=== PATIENT | female | born 1955 | race Caucasian/White ===

== ENCOUNTER 2019-11-15 15:16 | Inpatient (IN) | payer MEDICARE, MEDICAID ==
[~2019-11-15] VITALS: Ht 167.6 cm; Wt 98.6 kg
[2019-11-15] VITALS (469 sets, daily range): BP systolic 85–174; BP diastolic 45–87; PULSE 68–91; TEMP 98.2–98.6; O2SAT 32–100
[~2019-11-15 15:16] MED LIST: CAPSAICIN0.025% TP; IPRATROPIUM BROM3 M1 IH; KLONOPIN WAFER0.5 MG PO; LAMICTAL150 MG PO; NEURONTIN300 MG/CAP PO; NORVASC 5MG5 MG/TAB PO; PERCOCET 325 MG1 TA2 PO; ROZEREM 8MG TABL8 MG PO; WELLBUTRIN SR200 MG PO
--- NOTE | 2019-11-15 16:00 | NUR ---
Patient arrives to ICU 6 intubated and sedated. VS WNL. Assessment completed. Dr. Brady and Dr. Mahmood on unit to see her.
--- NOTE | 2019-11-15 17:15 | NUR ---
1630: Dr Brady gives order to prepare for ET tube exchange. 1640: 2mg Versed given, Dr Brady at bedside 1646: SPO2 dropped to 30% during exchange, crash cart at bedside anesthesia paged. BVM intitiated at 15L 1653: AA at bedside (Mynor Muller) to assist with re intubation 1659: 2mg versed given 1700: intubation complete, ET tube 8.0, 24 at the teeth. + color change with co2 indicator 1703: bronch at bedside, started. ET tube repostioned to 22cm at teeth 1709: bronch complete 1715: NG tube removed and OG placed at 55 at lip, placement confirmed. xray called to confirm ET tube placement.
[2019-11-15 18:06] LABS: ARTERIAL BLD GAS O2 SATURATION 88.3 % (92-100); ARTERIAL BLD GAS TCO2 CT 26.1; ARTERIAL BLOOD GAS HCO3 24.7 meq/L (22-26); ARTERIAL BLOOD GAS PCO2 45.7 mmHg (35-45); ARTERIAL BLOOD GAS PO2 58.8 mmHg (80-100); ARTERIAL BLOOD GAS pH 7.35 (7.35-7.45)
[2019-11-15 18:06] LABS: ARTERIAL BLD GAS O2 SATURATION 94.4 % (92-100); ARTERIAL BLOOD GAS BASE EXCESS 0.6 (-2-2); ARTERIAL BLOOD GAS HCO3 25.7 meq/L (22-26); ARTERIAL BLOOD GAS PCO2 43.4 mmHg (35-45); ARTERIAL BLOOD GAS PO2 66.4 mmHg (80-100); ARTERIAL BLOOD GAS pH 7.39 (7.35-7.45)
[2019-11-15 18:27] LABS: MEAN CELL VOLUME 90 fl (80.0-100.0); MEAN CORPUSCULAR HGB CONC 30 g/dl (33.0-37.0); MEAN PLATELET VOLUME 9.3 fl (7.4-10.4); PLATELET COUNT 355 K/mm3 (130-400); RED BLOOD COUNT 3.02 M/mm3 (4.10-5.30); REDCELL DISTRIBUTION WIDTH-CV 17.1 % (11.5-14.5)
[2019-11-15] MEDS ORDERED: DITROPAN XL15 MG PO (18:27)
[2019-11-15 18:30] LABS: PARTIAL THROMBOPLASTIN TIME 36.7 SECONDS (26.0-37.0)
[2019-11-15 18:31] LABS: HEMATOCRIT 27.1 % (37.0-47.0); HEMOGLOBIN 8.2 g/dl (12.5-16.0); MEAN CORPUSCULAR HEMOGLOBIN 27 pg (27.0-31.0)
[2019-11-15] MEDS ORDERED: PROTONIX 40MG T40 MG PO (18:32)
[2019-11-15 18:33] LABS: BILIRUBIN,TOTAL 0.5 mg/dL (0.0-1.0); CALCIUM 7.5 mg/dL (8.4-10.2); CREATININE, serum 4.44 (0.52-1.25); POTASSIUM 5.3 mmol/L (3.4-5.0); TOTAL PROTEIN 6.1 gm/dL (6.4-8.2)
[2019-11-15] MEDS ORDERED: VOLTAREN GEL 1%1 TU TP (18:33)
[2019-11-15] MEDS ORDERED: DULCOLAX STOOL100 MG PO (18:34)
[2019-11-15] MEDS ORDERED: MIRALAX PA17 GM/Dose PO (18:36)
[2019-11-15] MEDS ORDERED: DULCOLAX S10 MG/SUPP RC (18:37)
[2019-11-15] MEDS ORDERED: TYLENOL 325MG325 MG PO (18:38)
[2019-11-15 18:57] LABS: BAND 2 % (0-10); LYMPHOCYTE 2 % (20.0-51.0); MYELOCYTE 2 % (0-0); NEUTROPHILS 91 % (42.0-75.2); PLATELET ESTIMATE NORMAL (NORMAL)
[2019-11-15 18:58] LABS: ANISOCYTOSIS 2+; HYPOCHROMIA 2+
--- NOTE | 2019-11-15 20:00 | NUR ---
Assessment complete; patient opened eyes on to speech and shook head "yes" when this nurse said her name. Would not follow basic commands to squeeze hands or wiggle toes. Observed patient moving legs on bed independently. VS stable. Will continue to monitor.
[2019-11-15] MEDS ORDERED: NEURONTIN600 MG/TAB PO (20:15)
[2019-11-15 22:59] LABS: PH 5 (5-8); SQUAMOUS EPITHELIAL 0-2 /hpf; URINE APPEARANCE Hazy; URINE BACTERIA Rare /hpf; URINE BILIRUBIN Negative (NEGATIVE); URINE BLOOD 2+ (NEGATIVE); URINE COLOR Yellow; URINE GLUCOSE Negative (NEGATIVE); URINE KETONE Negative (NEGATIVE); URINE LEUKOCYTE ESTERASE Negative (NEGATIVE); URINE NITRATE Negative (NEGATIVE); URINE PROTEIN(semi-quant) 1+ (NEGATIVE); URINE RBC 20-50 /hpf; URINE UROBILINOGEN Negative (NEGATIVE)
[2019-11-15 23:05] LABS: COLLECTION METHOD CLEAN CATCH
[2019-11-16] VITALS (1391 sets, daily range): BP systolic 95–157; BP diastolic 50–79; PULSE 74–87; TEMP 98.2–99.8; O2SAT 72–100
[2019-11-16 05:22] LABS: CALCIUM 7.9 mg/dL (8.4-10.2); CREATININE, serum 4.44 (0.52-1.25); MAGNESIUM 2.5 mg/dL (1.6-2.3); PHOSPHOROUS 4.9 mg/dL (2.5-4.5); POTASSIUM 4.5 mmol/L (3.4-5.0)
[2019-11-16 05:22] LABS: ARTERIAL BLD GAS TCO2 CT 24.9; ARTERIAL BLOOD GAS BASE EXCESS -1.8 (-2-2); ARTERIAL BLOOD GAS HCO3 23.6 meq/L (22-26); ARTERIAL BLOOD GAS PCO2 42.5 mmHg (35-45); ARTERIAL BLOOD GAS PO2 79.1 mmHg (80-100); ARTERIAL BLOOD GAS pH 7.36 (7.35-7.45)
[2019-11-16 05:40] LABS: MEAN CELL VOLUME 89 fl (80.0-100.0); MEAN CORPUSCULAR HGB CONC 30 g/dl (33.0-37.0); MEAN PLATELET VOLUME 9.6 fl (7.4-10.4); PLATELET COUNT 381 K/mm3 (130-400); RED BLOOD COUNT 3.18 M/mm3 (4.10-5.30); REDCELL DISTRIBUTION WIDTH-CV 17.2 % (11.5-14.5)
[2019-11-16 05:42] LABS: HEMATOCRIT 28.2 % (37.0-47.0); HEMOGLOBIN 8.4 g/dl (12.5-16.0); MEAN CORPUSCULAR HEMOGLOBIN 26 pg (27.0-31.0)
--- NOTE | 2019-11-16 06:00 | NUR ---
While assisting with mirlande-care patient reached up and pointed to ET tube multiple times. Did not appear to be attempting to pull on tube. Pt shook head yes when asked if mouth was hurting. Pain medication increased at this time. Will continue to monitor.
[2019-11-16 06:03] LABS: ANISOCYTOSIS 1+; BAND 6 % (0-10); EOSINOPHIL 1 % (0-4); LYMPHOCYTE 6 % (20.0-51.0); NEUTROPHILS 76 % (42.0-75.2); PLATELET ESTIMATE NORMAL (NORMAL)
--- NOTE | 2019-11-16 09:45 | NUR ---
at bedside. Patient is anxious and trying to talk while on ventilator. Some PRN ativan will be ordered.
--- NOTE | 2019-11-16 09:59 | NUR ---
Patient transfers from the [facility] where she was in rehab as swing bed status. Patient is intubated at this time. second time worker contacted patient's son, Bossman #[phone]. Bossman states that patient has been for over 20 years. Bossman states that patient legally adopted him at 1 year of age and does not have any other children. Worker notified Bossman, that if patient cannot speak for her self at any point, he is legal next of kin to make health care decisions. Bossman verbalizes acknowledgement of above information. Bossman states he will be traveling to [place] on Tuesday from his home in [place], [place] and that is is a [address] Bossman states he will try to be in [place] between 6 and 8:00pm. Bossman states his voicemail is full and that he will have his cell phone with him in case he is needed by the hospital. Worker collaborated with nursing and Dr Renee regarding the above information.
--- NOTE | 2019-11-16 12:11 | NUR ---
I met with pt this morning for palliative care consult. Pt does realize that she has cancer, does not remember talking with oncologist, Dr Freedman, and does not want me to talk with her son at this time. Pt is on the vent currently but is able to shake head yes or no. I talked about pursuing treatment if it is available to her at this point and asked her if this is what she would want with potential chemotherapy/radiation therapy to help control her cancer. There are no sure treatments and currently she only has one lung working and that is with ventilator. Side effects of chemotherapy were reviewed and would be determined by the drugs deemed most effective. She will likely not be able to get chemotherapy or radiation therapy while on the vent. When asked if she wanted to pursue treatment she shook her head yes. I asked several different times through our talk and each time she shok her head. I also spoke of comfort care as an alternative to seeking treatment that may not help and will likely make her feel bad. I emphasized that no treatment would be given but medications would be provided to keep her comfortable when off the ventilator. She shook her head no. Her son will be here tomorrow evening. I encouraged her to talk with him. I will be back on Tuesday. We talked about code status. I explained that now as a full code we would do chest compressions and maintain the vent to try to bring her back to life which will likely break ribs and cause more pain. As a Do Not Resuscitate we would give her medications to be comfortable and let her pass peacefully. Do everything is what she indicated was her wish. Does not want to . This was relayed to her primary nurse, ICU surgical supervisor, and Wendy Laboy RN. At this time she wants everything done.
--- NOTE | 2019-11-16 13:00 | NUR ---
spoke to patients son, Bossman, and said he will be here tomorrow by 1400 to discuss patients plan of care and prognosis.
[2019-11-16 14:40] LABS: PHOSPHOROUS 5.1 mg/dL (2.5-4.5)
[2019-11-16 14:47] LABS: PRE ALBUMIN 18.4 mg/dL (17.6-36.0)
--- NOTE | 2019-11-16 19:15 | NUR ---
Patient alert and following commands but restless in bed. Sedation increased for comfort.
[2019-11-17] VITALS (826 sets, daily range): BP systolic 105–180; BP diastolic 52–95; PULSE 70–100; TEMP 98.2–99.6; O2SAT 47–100
--- NOTE | 2019-11-17 00:15 | NUR ---
Tolerating the ventilator well; no concerns at this time.
[2019-11-17 05:13] LABS: MEAN CELL VOLUME 89 fl (80.0-100.0); MEAN CORPUSCULAR HGB CONC 30 g/dl (33.0-37.0); MEAN PLATELET VOLUME 9.5 fl (7.4-10.4); PLATELET COUNT 371 K/mm3 (130-400); RED BLOOD COUNT 2.84 M/mm3 (4.10-5.30); REDCELL DISTRIBUTION WIDTH-CV 17.5 % (11.5-14.5)
[2019-11-17 05:20] LABS: ARTERIAL BLD GAS O2 SATURATION 93.9 % (92-100); ARTERIAL BLD GAS TCO2 CT 21.5; ARTERIAL BLOOD GAS BASE EXCESS -4.4 (-2-2); ARTERIAL BLOOD GAS HCO3 20.4 meq/L (22-26); ARTERIAL BLOOD GAS PCO2 35.8 mmHg (35-45); ARTERIAL BLOOD GAS PO2 74.3 mmHg (80-100); ARTERIAL BLOOD GAS pH 7.37 (7.35-7.45)
[2019-11-17 05:25] LABS: CALCIUM 7.7 mg/dL (8.4-10.2); CREATININE, serum 4.1 (0.52-1.25); MAGNESIUM 2.2 mg/dL (1.6-2.3); PHOSPHOROUS 4.6 mg/dL (2.5-4.5); POTASSIUM 4.9 mmol/L (3.4-5.0)
[2019-11-17 05:35] LABS: HEMATOCRIT 25.4 % (37.0-47.0); HEMOGLOBIN 7.5 g/dl (12.5-16.0); MEAN CORPUSCULAR HEMOGLOBIN 26 pg (27.0-31.0)
--- NOTE | 2019-11-17 06:03 | NUR ---
Placed pt on CPAP 7 with pressure support 8 at 0538 during sedation vacation. Pt calm, vitals have remained stable to this point. Tidal volumes in the 400s, RR 15-18 RN aware that pt is still in CPAP and monitoring vitals.
--- NOTE | 2019-11-17 07:48 | NUR ---
Shift assessment complete at this time. Plan of care reviewed at bedside with patient. Additional time taken to address any other needs or concerns. Vitals stable while on ventilator. Pt displays no signs of pain or discomfort and denies this when prompted so. Bed in low position, call light within reach. Tolerating tube feedings with evident low residual volumes. Will continue to monitor.
--- NOTE | 2019-11-17 08:37 | NUR ---
Pt attempted to self-extubate at this time and was able to fully remove her OG tube. [place] guard had been partially removed from face but bilateral breath sounds remained. Sedation was returned to previous set doseages pre-weaning trial and PRN ativan was administered for anxiety. Vital signs stable at this time. Chest X-ray ordered for placement verification.
--- NOTE | 2019-11-17 11:05 | NUR ---
Propofol placed on standby and Fentanyl gtt reduced to 50 mcg/hr per direction of Dr. Neville for spontaneous breathing trial.
--- NOTE | 2019-11-17 12:00 | NUR ---
Shift reassessment complete at this time. No changes from previous assessment noted. Vitals stable at this time while on ventilator. Pt displays no overt signs of pain and denies pain as well. Bed in low et locked position, call light within reach, will continue to monitor.
[2019-11-17 12:31] LABS: ARTERIAL BLD GAS O2 SATURATION 93.1 % (92-100); ARTERIAL BLD GAS TCO2 CT 22.5; ARTERIAL BLOOD GAS BASE EXCESS -4.7 (-2-2); ARTERIAL BLOOD GAS HCO3 21.2 meq/L (22-26); ARTERIAL BLOOD GAS PCO2 42.6 mmHg (35-45); ARTERIAL BLOOD GAS pH 7.31 (7.35-7.45)
--- NOTE | 2019-11-17 12:40 | NUR ---
Diprivan therapy reinitiated per direction of Dr. Neville, goal is to achieve RASS of -1
--- NOTE | 2019-11-17 13:00 | NUR ---
Pt refused oral care at this time.
--- NOTE | 2019-11-17 14:56 | NUR ---
Propofol et Fentanyl drips stopped per direction of Dr. Neville for family meeting with family regarding goals of care.
--- NOTE | 2019-11-17 15:00 | NUR ---
Dr. Neville at bedside at this time for goals of care meeting with son, Bossman.
--- NOTE | 2019-11-17 16:40 | NUR ---
PT EXTUBATED TO COMFORT CARE PER DR MCKEON ORDERS. PLACED ON 5L OM FOR COMFORT. NO COMPLICATIONS.
--- NOTE | 2019-11-17 19:15 | NUR ---
Assisted with bed bath. Increased pain medication per patient request. Oral care and ice chips provided. Will continue to monitor for comfort.
--- NOTE | 2019-11-17 19:57 | NUR ---
Called hospitalist to request increase in Ativan dosage and time interval to assist with anxiety and air hunger. Hospitalist to Review EMAR.
--- NOTE | 2019-11-18 02:00 | NUR ---
Patient appears comfortable in bed. Family at bedside. Denies any needs or concerns at this time.
--- NOTE | 2019-11-18 06:32 | NUR ---
HR showing asystole. Auscultated for heart tones with two nurses and no heart beat detected. Time of reported to be 0632. Sister at bedside and notified. supervisor pre wave notified.
--- NOTE | 2019-11-18 06:48 | NUR ---
Contacted [facility] and spoke with Tamia at this time. She will give patient information to eye bank and return call. [facility] Referral # [id number]
--- NOTE | 2019-11-18 07:30 | NUR ---
Ricky from [facility] called with questions regarding patient's medical history. States patient is not a candidate for donation at this time and may be released to the home.
--- NOTE | 2019-11-18 11:43 | NUR ---
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 RN made aware
--- NOTE | 2019-11-18 13:45 | NUR ---
Patient body released to home.
== END 2019-11-18 13:45 | disposition expired | DRG 208 ==
LOC: IMCU 15:16 → ICU 16:04
PROVIDERS: Internal Medicine Nephrology; Internal Medicine Pulmonary Disease
PROC: 0B938ZZ Drainage of Right Main Bronchus, Via Natural or Artificial Opening Endoscopic (ICD-10-PCS; principal; 2019-11-15)
PROC: 5A1945Z Respiratory Ventilation, 24-96 Consecutive Hours (ICD-10-PCS; 2019-11-15)
DX: J96.01 Acute respiratory failure with hypoxia (principal); J18.8 Other pneumonia, unspecified organism; C34.91 Malignant neoplasm of unspecified part of right bronchus or lung; C79.51 Secondary malignant neoplasm of bone; N17.9 Acute kidney failure, unspecified; I82.403 Acute embolism and thrombosis of unspecified deep veins of lower extremity, bilateral; J98.11 Atelectasis; E87.5 Hyperkalemia; F41.9 Anxiety disorder, unspecified; G89.29 Other chronic pain; Z90.710 Acquired absence of both cervix and uterus; Z90.49 Acquired absence of other specified parts of digestive tract; Z98.42 Cataract extraction status, left eye; Z98.41 Cataract extraction status, right eye; Z87.891 Personal history of nicotine dependence; D63.0 Anemia in neoplastic disease; Z66 Do not resuscitate
CPT/HCPCS: 99223-AI; 99233-AI; J0692; J1644; J2060; J2250; J2270; J2704; J3010; J7030